=== PATIENT | male | born 1975 | race Caucasian/White ===

== ENCOUNTER 2018-11-26 07:29 | Emergency (ER) | payer OTHER ==
[2018-11-26 08:04] VITALS: BP 114/62; PULSE 82; TEMP 98.1; BMI 25.8
[2018-11-26 08:27] LABS: BASO % 0.8 % (0-2.0); EOS % 3.7 % (0-4.5); HEMATOCRIT 34.2 % (35.4-49); HEMOGLOBIN 11.3 GM/dL (11.7-16.9); MCH 29.8 pg (25.7-33.7); MCHC 32.9 g/dl (32.0-35.9); MEAN CELL VOLUME 90.6 fl (80-96); MEAN PLT VOLUME 8.6 fl (7.5-11.1); MONO % 5.9 % (3.8-10.2); NEUT % 63.6 % (42.8-82.8); PLATELET COUNT 249 K/MM3 (134-434); RBC 3.78 M/mm3 (4.00-5.60); RDW 15.8 % (11.9-15.9); WHITE BLOOD COUNT 10.1 K/mm3 (4.0-10.0)
[2018-11-26 08:39] LABS: INR 0.91 (0.83-1.09); PROTHROMBIN TIME (PATIENT) 10.7 SEC (9.7-13.0)
[2018-11-26 08:41] LABS: ACTIVATED PTT 32.2 SECONDS (25.2-36.5)
[2018-11-26 08:46] LABS: ALBUMIN 3.3 g/dl (3.4-5.0); ALK PHOS 110 U/L (45-117); ANION GAP 13 MMOL/L (8-16); BILIRUBIN,TOTAL 0.2 mg/dL (0.2-1); CALCIUM 8.5 mg/dL (8.5-10.1); CHLORIDE 102 mmol/L (98-107); CO2 20 mmol/L (21-32); GLUCOSE,RANDOM 104 mg/dL (74-106); POTASSIUM 5.3 mmol/L (3.5-5.1); SGOT/AST 12 U/L (15-37); SGPT/ALT 15 U/L (13-61); SODIUM 136 mmol/L (136-145); TOT PROT 6.8 g/dl (6.4-8.2)
[2018-11-26 08:47] LABS: BLOOD UREA NITROGEN 105 mg/dL (7-18); CREATININE 7.4 mg/dL (0.55-1.3)
--- NOTE | 2018-11-26 08:57 | PDOC ---
History of Present Illness - General Chief Complaint: Dialysis Shunt Problem Stated Complaint: CATHETER PROBLEM History Source: Patient Exam Limitations: No Limitations - History of Present Illness Initial Comments: 11/26/18 08:39 43 yo male pmh of HTN, HLD, ESRD (dialysis //Fri) presents to the ED from [facility] dialysis center for possible migration permacath with bloody drainage and cessation of the dialysis machine. Pt states he was 30 min into his 3 hour dialysis treatment when a nurse noticed leakage of blood from the catheter site and was immediately transported to the ED. Pt receives dialysis //FRI but due to the holidays, last dialysis was Friday. Port was placed at [facility] by an unknown surgeon to the pt since he was altered due to sudden onset of CKD but pt has peritoneal cath placed [address] Schreiber in [place] and is followed by this surgeon. Peritoneal cath has not been used yet and pt has pain at the site, pt unwilling to use this site for dialysis today. Pt denies issues with the port cath since initial placement in Aug, denies pain/drainage/ redness/swelling/induration at the site of the Cath, denies F/C/N/V, abdominal pain, changes in bowel or bladder habits, CP, ankle swelling or SOB. Past History - Past Medical History Allergies/Adverse Reactions: Allergies Allergy/AdvReac Type Severity Reaction Status Date / Time No Known Allergies Allergy Verified 11/26/18 07:46 Home Medications: Ambulatory Orders Amlodipine Besylate [Norvasc -] 10 mg PO DAILY 11/26/18 Folic Acid 1 mg PO DAILY 11/26/18 Ramipril 20 mg PO BID 11/26/18 Rosuvastatin Calcium [Crestor] 20 mg PO DAILY 11/26/18 Sevelamer Carbonate [Renvela] 800 mg PO BID 11/26/18 Thiamine HCl [Vitamin B1] 100 mg PO DAILY 11/26/18 COPD: No Dialysis: Yes (,,) HTN: Yes Hypercholesterolemia: Yes - Surgical History Abdominal Surgery: Yes (bilateral inguinal hernia) - Suicide/Smoking/Psychosocial Hx Smoking History: Current every day smoker Have you smoked in the past 12 months: Yes Number of Cigarettes Smoked Daily: 3 Information on smoking cessation initiated: No Hx Alcohol Use: No Drug/Substance Use Hx: Yes *Physical Exam - Vital Signs Last Vital Signs Temp Pulse Resp BP Pulse Ox 98.1 F 82 18 114/62 97 11/26/18 07:37 11/26/18 07:37 11/26/18 07:37 11/26/18 07:37 11/26/18 07:37 Moderate Sedation - Procedure Monitoring Vital Signs: Procedure Monitoring Vital Signs Temperature 98.1 F 11/26/18 07:37 Pulse Rate 82 11/26/18 07:37 Respiratory Rate 18 11/26/18 07:37 Blood Pressure 114/62 11/26/18 07:37 O2 Sat by Pulse Oximetry (%) 97 11/26/18 07:37 ED Treatment Course - LABORATORY CBC & Chemistry Diagram: 11/26/18 08:15 11/26/18 08:15 - ADDITIONAL ORDERS Additional order review: 11/26/18 08:15 RBC 3.78 L MCV 90.6 MCHC 32.9 RDW 15.8 MPV 8.6 Neutrophils % 63.6 Lymphocytes % 26.0 Monocytes % 5.9 Eosinophils % 3.7 Basophils % 0.8 Medical Decision Making - Medical Decision Making 11/26/18 09:10 call made out to Vas Surg DR. Schreiber to discuss pts permacath migration. States drainage from the permacath site is normal even though the machine beeped and would not continue, Dr. Schreiber would like Dr. Clark (nephro) called to determine if dialysis is required today. Dr Clark sates pt does not require dialysis today even though last dialysis was friday, there was drainage and the machine stopped. Dr. Clark states pt is safe for DC home and he will call the dialysis center today. Pt will call Dr. Clark today to have follow up scheduled. Labs and ekg WNL and discussed with Dr. May and Amber. Pt does not require emergent dialysis today and can follow up as an outpt according to specialists. 11/26/18 09:55 Dr. Schreiber office calls ED and states he would like the pt to come to the office today [facility] to follow with Dr. Feliciano to assess the permath. Pt spoke directly with the office and understands plan. Will be driven directly back to his car located at dialysis center *DC/Admit/Observation/Transfer Diagnosis at time of Disposition: Complications, dialysis, catheter, mechanical Qualifiers: Encounter type: initial encounter Qualified Code(s): T82.49XA - Other complication of vascular dialysis catheter, initial encounter - Discharge Dispostion Disposition: HOME Condition at time of disposition: Stable Decision to Admit order: No - Referrals Referrals: ON STAFF,NOT [Primary Care Provider] - Lan Clark MD [Non Staff, Medical] - - Patient Instructions Printed Discharge Instructions: DI for Dialysis Additional Instructions: Please call Dr. Clark today to have dialysis scheduled and assessment of catheter site for potential intervention. Hea straight over to Dr. Agustin's office to have your peracath site assessed Return to the Emergency Room for new or concerning symptoms including but not limited to: further concerns with your dialysis site, redness, warmth, drainage or pain around the catheter site, fevers or chills. Continue taking all your home medications as prescribed Thank you - Post Discharge Activity
--- NOTE | 2018-11-26 09:07 | PDOC ---
Attending Attestation - HPI HPI: 11/26/18 09:31 The patient is a 43 year old male, with a significant PMH of hypertension, hyperlipidemia, ESRD (dialysis //) who presents to the emergency department with oozing blood from the catheter site during dialysis this morning. The patient states his dialysis this morning was incomplete secondary to leakage of blood from the catheter site. The patient states his last full dialysis was Friday. The patient also reports he had a peritoneal catheter placed [address] Schreiber in [place] but has not used the peritoneal catheter yet secondary to pain at the site. The patient denies chest pain, shortness of breath, headache and dizziness. Denies fever, chills, nausea, vomit, diarrhea and constipation. Denies dysuria, frequency, urgency and hematuria. Allergies: NKA Documentation prepared by Fernando Hinkle, acting as medical data entry clerk for Setven Leigh MD. - Physicial Exam PE: 11/26/18 09:45 Vitals: Triage Vital signs reviewed General Appearance: no acute distress, well nourished well developed, Neck: Supple; No Nuchal rigidity Chest Wall: Nontender Cardiac: Regular rate and rhythm, no murmurs, no rubs, no gallops, Lungs: Clear to auscultation bilateral, good air movement bilaterally, Abdomen: Soft, nondistended, normal bowel sounds, nontender to palpation Rectal: Exam deferred Extremities: Full range of motion to all extremities, no cyanosis, clubbing, or edema Skin: Warm and dry, no rashes or lesions, no petechiae Psych: normal mood, normal affect <Fernando Hinkle - Last Filed: 11/26/18 09:44> - Resident Resident Name: Polo Lee - ED Attending Attestation I have performed the following: I have examined & evaluated the patient, The case was reviewed & discussed with the resident, I agree w/resident's findings & plan, Exceptions are as noted - Physicial Exam PE: 11/26/18 09:56 Skin exam addendum tunneled Port-A-Cath no bleeding - Medical Decision Making 11/26/18 09:56 Tunnel catheter shunt malfunction this morning while at dialysis here in the emergency department EKG demonstrates no evidence of hyperkalemia. Potassium 5.3 patient asymptomatic Case discussed with patient's vascular surgeon Dr. Silva no acute intervention needed he can follow-up in the office today Case discussed with patient's ager tender he will arrange for repeat dialysis tomorrow after he sees vascular surgery Plan discussed with patient patient is amenable to plan stable for outpatient follow-up today and tomorrow. Find his, need follow-up and strict return instructions discussed with patient. <Steven Leigh - Last Filed: 11/26/18 09:57>
--- NOTE | 2018-11-26 12:11 | EKG ---
Test Reason : Blood Pressure : / mmHG Vent. Rate : 072 BPM Atrial Rate : 072 BPM P-R Int : 184 ms QRS Dur : 090 ms QT Int : 382 ms P-R-T Axes : -11 001 025 degrees QTc Int : 418 ms NORMAL SINUS RHYTHM NORMAL ECG NO PREVIOUS ECGS AVAILABLE Confirmed by DIANA CASTILLO MD ([id number]) on 11/26/2018 12:11:16 PM Referred By: Confirmed By:DIANA CASTILLO MD
== END 2018-11-26 10:00 | disposition home or self-care (01) ==
LOC: JER 07:29
DX: T82.49XA Other complication of vascular dialysis catheter, initial encounter (principal); Y84.1 Kidney dialysis as the cause of abnormal reaction of the patient, or of later complication, without mention of misadventure at the time of the procedure; Y73.3 Surgical instruments, materials and gastroenterology and urology devices (including sutures) associated with adverse incidents; I12.0 Hypertensive chronic kidney disease with stage 5 chronic kidney disease or end stage renal disease; N18.6 End stage renal disease; N17.8 Other acute kidney failure; Z99.2 Dependence on renal dialysis; E78.5 Hyperlipidemia, unspecified
CPT/HCPCS: 36415; 80053; 85025; 85610; 85730; 93005; 93010; 99282-25